=== PATIENT | female | born 1965 | race Caucasian/White ===

== ENCOUNTER 2017-05-25 07:01 | Day surgery (SDC) | payer MEDICAID ==
[~2017-05-25 07:01] MED LIST: Lactated Ringers 1,000 ML IV SCH
[2017-05-25] MEDS ORDERED: Propofol 200 MG/20 ML SDV IV ONE (07:02)
--- NOTE | 2017-05-25 08:23 | PCM.OPNOTE ---
- General Post-Op/Procedure Note Date of Surgery/Procedure: 05/25/17 Operative Procedure(s): c scope Findings: normal exam Pre Op Diagnosis: screening Post-Op Diagnosis: normal exam Anesthesia Technique: MAC Primary Surgeon: Dagoberto Valdovinos Anesthesia Provider: Gian Barahona Pathology: none Complications: None Condition: Good Free Text/Narrative:: see dictation
--- NOTE | 2017-05-25 12:17 | OR ---
DATE OF OPERATION: 05/25/2017 SURGEON: Dagoberto Valdovinos MD PROCEDURE PERFORMED: Colonoscopy. PREOPERATIVE DIAGNOSIS: Need for screening C scope. POSTOPERATIVE DIAGNOSIS: Normal colonoscopic exam. INDICATIONS FOR PROCEDURE: This is a 52-year-old white female who presents for her initial screening colonoscopy. Past medical history is significant for a volvulus. She is not sure what part of her colon, which required surgery. She was offered and accepted a colonoscopy. DESCRIPTION OF PROCEDURE: After an excellent IV sedation was administered, a digital rectal exam was performed. No marked abnormality was noted. The flexible colonoscope was inserted and advanced to what appeared to be the cecum. Did not have a distinctive ileocecal valve; however, there appeared to be a colonic ileum anastomosis in the area and the light did light up in the right lower quadrant. 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 Following findings were noted. Ascending colon, unremarkable. Transverse colon, unremarkable. Descending colon, unremarkable. Sigmoid and rectum unremarkable. Colon was deflated. Scope was removed. The patient tolerated procedure well. RECOMMENDATIONS: Repeat screening colonoscopy in 10 years. /[id number] /[id number]
== END 2017-05-25 09:10 | disposition home or self-care (01) ==
LOC: FB.SDS 07:01
PROVIDERS: ATTEND Surgery
DX: Z12.11 Encounter for screening for malignant neoplasm of colon (principal); J30.81 Allergic rhinitis due to animal (cat) (dog) hair and dander; Z91.09 Other allergy status, other than to drugs and biological substances; Z79.899 Other long term (current) drug therapy
CPT/HCPCS: 45378; J2704; J7120